=== PATIENT | female | born 1985 | race Hispanic/Latino ===

== ENCOUNTER 2021-09-06 17:57 | Emergency (ER) | payer BC, OTHER ==
[~2021-09-06] VITALS: Ht 170.2 cm; Wt 81.6 kg
[~2021-09-06 17:57] MED LIST: PROAIR HFA8.5 G1; Z SINGULAIR PO; Z.0.ADVAIR 250-501 E IH; Z.0.LISINOPRIL10 MG PO; Z.0.NASONEX17 GM NS
== END 2021-09-06 18:38 | disposition left against medical advice (07) ==
LOC: FSED 18:38
DX: S43.491A Other sprain of right shoulder joint, initial encounter (principal); W18.30XA Fall on same level, unspecified, initial encounter; Y92.89 Other specified places as the place of occurrence of the external cause